=== PATIENT | female | born 1985 | race Caucasian/White ===

== ENCOUNTER 2017-01-30 20:07 | Emergency (ER) | payer SELFPAY ==
[2017-01-30 20:07] VITALS: BMI 27.1
[2017-01-30 20:37] VITALS: O2SAT 97
[2017-01-30] MEDS ORDERED: DiphenhydrAMINE 50 mg/ml Inj IM STA (20:53)
--- NOTE | 2017-01-30 20:57 | C.PDOC ---
History Of Present Illness Patient is a 31 y/o female that presents to the ED for evaluation of RLQ abdominal pain associated with nausea for the last 3 days. Otherwise, denies any dysuria, heamturia, vomiting, diarrehea, back pain, fever, chills, or any other associated symptoms at this time. Chief Complaint (Nursing): Abdominal Pain History Per: Patient History/Exam Limitations: no limitations Onset/Duration Of Symptoms: Days (3) Current Symptoms Are (Timing): Still Present Location Of Pain/Discomfort: RLQ Radiation Of Pain To:: None Quality Of Discomfort: "Pain" Associated Symptoms: Nausea. denies: Fever, Chills, Vomiting, Diarrhea, Loss Of Appetite, Back Pain, Chest Pain, Constipation, Urinary Symptoms Exacerbating Factors: None Alleviating Factors: None Recent travel outside of the [place]: No Additional History Per: Patient Abnormal Vaginal Bleeding: No Past Medical History Reviewed: Historical Data, Nursing Documentation, Vital Signs Vital Signs: Last Vital Signs Temp 98.4 F 01/30/17 20:29 Pulse 86 01/30/17 20:29 Resp 18 01/30/17 20:29 BP 114/75 01/30/17 20:29 Pulse Ox 97 01/30/17 22:56 - [facility] Procedures MANUAL ASSIST DELIV NEC (06/30/14) REPAIR OB LACERAT CERVIX (06/30/14) Family History: States: Unknown Family Hx - Social History Hx Alcohol Use: No Hx Substance Use: No Review Of Systems Except As Marked, All Systems Reviewed And Found Negative. Constitutional: Negative for: Fever, Chills Gastrointestinal: Positive for: Nausea, Abdominal Pain. Negative for: Vomiting , Diarrhea, Constipation Genitourinary: Negative for: Dysuria, Frequency, Incontinence, Hematuria Musculoskeletal: Negative for: Back Pain Physical Exam - Physical Exam Appears: Non-toxic, Other (In mild painful distress) Skin: Normal Color, Warm, Dry Head: Atraumatic, Normacephalic Eye(s): bilateral: Normal Inspection, EOMI Neck: Normal ROM, Supple Chest: Symmetrical, No Tenderness Cardiovascular: Rhythm Regular, No Murmur Respiratory: Normal Breath Sounds, No Rales, No Rhonchi, No Wheezing Gastrointestinal/Abdominal: Soft, Tenderness (RLQ), No Distention, No Guarding, No Rebound Extremity: Normal ROM, No Deformity Neurological/Psych: Oriented x3, Normal Speech, Normal Cognition ED Course And Treatment - Laboratory Results Result Diagrams: 01/30/17 21:10 01/30/17 21:10 O2 Sat by Pulse Oximetry: 97 (on RA) Pulse Ox Interpretation: Normal Progress Note: Blood work, urinalysis, Abd & pelvis CT ordered and reviewed. Patient was treated with Iohexol, Toradol, Zofran, and IV fluids in the ER. Disposition Counseled Patient/Family Regarding: Diagnosis - Disposition Referrals: [facility] [Outside] Disposition: HOME/ ROUTINE Disposition Time: 00:53 Condition: STABLE Prescriptions: Bisacodyl [Ducolax] 10 mg RC ONCE #2 sup Instructions: Constipation (DC), High Fiber Diet (ED), Abdominal Pain (ED) Forms: Gen Discharge Inst [place] Print Language: [place] - POA Present On Arrival: None - Clinical Impression Clinical Impression: Abdominal pain, Constipation - Scribe Statement The provider has reviewed the documentation as recorded by the Coreyibhawa Tijerina All medical record entries made by the Croeyibhawa were at my direction and personally dictated by me. I have reviewed the chart and agree that the record accurately reflects my personal performance of the history, physical exam, medical decision making, and the department course for this patient. I have also personally directed, reviewed, and agree with the discharge instructions and disposition.
[2017-01-30 21:13] LABS: SQUAMOUS EPITHIAL 2 /hpf (0-5); URINE BILIRUBIN NEGATIVE (NEGATIVE); URINE BLOOD NEGATIVE (NEGATIVE); URINE CLARITY Clear (Clear); URINE COLOR Straw (YELLOW); URINE GLUCOSE (UA) NORMAL (Normal); URINE LEUKOCYTE ESTERASE NEG Leu/uL (Negative); URINE NITRATE NEGATIVE (NEGATIVE); URINE PROTEIN NEGATIVE (NEGATIVE); URINE UROBILINOGEN NORMAL mg/dL (0.2-1.0)
[2017-01-30] MEDS ORDERED: Sodium Chloride 0.9% 1,000 ML IV ONE (21:14)
[2017-01-30] MEDS ORDERED: Sodium Chloride 0.9% 1,000 ML ONE (21:16)
[2017-01-30 21:20] LABS: HCG,QUALITATIVE URINE NEGATIVE (NEGATIVE)
[2017-01-30 21:23] LABS: BASO % 0.5 % (0.0-2.0); EOS # 0.1 K/uL (0.0-0.7); EOS % 1.3 % (0.0-4.0); HEMOGLOBIN 12.2 g/dL (11.0-16.0); LYMPH % 25.5 % (20.0-40.0); MEAN CELL VOLUME 81.8 fL (81.0-99.0); MEAN CORPUSCULAR HEMOGLOBIN 25.7 pg (27.0-31.0); MEAN CORPUSCULAR HGB CONC 31.4 g/dL (33.0-37.0); MEAN PLATELET VOLUME 8.7 fL (7.2-11.7); MONO # 0.4 K/uL (0.0-0.8); MONO % 4.8 % (0.0-10.0); NEUT # 5.4 K/uL (1.8-7.0); NEUT % 67.9 % (50.0-75.0); RBC 4.76 Mil/uL (3.80-5.20); RED CELL DISTRIBUTION WIDTH 14.7 % (11.5-14.5); WHITE BLOOD COUNT 7.9 K/uL (4.8-10.8)
[2017-01-30 21:25] LABS: ALBUMIN 3.9 g/dL (3.5-5.0)
[2017-01-30 21:28] LABS: ALB/GLOB RATIO 1.3 (1.0-2.1); AST/SGOT 19 U/L (14-36); BLOOD UREA NITROGEN 9 mg/dL (7-17); GFR AFRICAN-AMERICAN > 60; GFR NON-AFRICAN AMERICAN > 60
[2017-01-30 21:29] LABS: ALT/SGPT 27 U/L (9-52); CALCIUM 8.9 mg/dl (8.6-10.4); LIPASE 82 U/L (23-300)
[2017-01-30] MEDS ORDERED: Iohexol 240 (50 ml) PO ONE (21:48)
[2017-01-30] MEDS ORDERED: Iohexol 240 (50 ml) ONE (21:58)
[2017-01-30] MEDS ORDERED: Iodixanol 320 MG/ML 100 ML BOTTLE IV ONE (23:42)
[2017-01-31] MEDS ORDERED: Magnesium Hydroxide Susp 30 ml UD PO ONE (00:57)
[2017-01-31] MEDS ORDERED: Magnesium Hydroxide Susp 30 ml UD ONE (01:07)
[2017-01-31 01:16] VITALS: BP 132/71; PULSE 79; RESP 20; TEMP 98.8
--- NOTE | 2017-01-31 09:19 | CT ---
PROCEDURE: CT Abdomen and Pelvis with contrast HISTORY: Right lower quadrant abdominal pain and tenderness. COMPARISON: None. TECHNIQUE: Multiple contiguous axial images were performed through the abdomen and pelvis with intravenous contrast. Subsequently, sagittal and coronal reformatted images were obtained. Radiation dose: Total exam DLP = 462 mGy-cm. This CT exam was performed using one or more of the following dose reduction techniques: Automated exposure control, adjustment of the mA and/or kV according to patient size, and/or use of iterative reconstruction technique. FINDINGS: LOWER THORAX: Unremarkable. LIVER: Mild fatty infiltration of the liver. GALLBLADDER AND BILE DUCTS: Unremarkable. PANCREAS: Unremarkable. No gross lesion or ductal dilatation. SPLEEN: Unremarkable. ADRENALS: Unremarkable. No mass. KIDNEYS AND URETERS: Unremarkable. No hydronephrosis. No solid mass. VASCULATURE: Unremarkable. No aortic aneurysm. BOWEL: Moderate fecal retention in the right and transverse colon consistent with constipation. Underdistention and or mild thickening of the proximal sigmoid colon. APPENDIX: Normal appendix. PERITONEUM: Unremarkable. No free fluid. No free air. LYMPH NODES: Unremarkable. No enlarged lymph nodes. BLADDER: Unremarkable. REPRODUCTIVE: Unremarkable. BONES: No acute fracture. OTHER FINDINGS: None. IMPRESSION: Moderate fecal retention in the right and transverse colon consistent with constipation. Underdistention and or mild thickening of the proximal sigmoid colon. Additional findings as above. These findings were preliminarily reported at 12:48 a.m. on 01/31/[address] Meir Hodges from [facility].
== END 2017-01-31 01:14 | disposition home or self-care (01) ==
LOC: C.ER 20:07
DX: K59.00 Constipation, unspecified (principal); R10.31 Right lower quadrant pain
CPT/HCPCS: 74177; 80053; 81001; 83690; 84702; 84703; 85025; 96374; 96375; 99284; J1885; J2405; J7040; Q9966; Q9967

== ENCOUNTER 2017-07-03 08:39 | Emergency (ER) | payer OTHER ==
[2017-07-03 08:39] VITALS: BMI 27.1
[2017-07-03 08:46] VITALS: TEMP 97.4
[2017-07-03] MEDS ORDERED: Sodium Chloride 0.9% 1,000 ML IV ONE (09:02)
--- NOTE | 2017-07-03 09:17 | C.PDOC ---
History Of Present Illness 31 year old female presents to the ED for evaluation of abdominal pain, dysuria along with nausea that started last night. Patient's LMP was on 06/10 and she is G 3 and P 3, POC done at the ED was negative. Patient denies fever, chills, vomit, back pain, vaginal bleeding, vaginal discharge. Time Seen by Provider: 07/03/17 08:41 Chief Complaint (Nursing): Female Genitourinary History Per: Patient History/Exam Limitations: no limitations Onset/Duration Of Symptoms: Hrs Current Symptoms Are (Timing): Still Present Severity: Mild Quality Of Discomfort: "Pain" Associated Symptoms: Nausea, Urinary Symptoms Alleviating Factors: None Recent travel outside of the [place]: No Additional History Per: Patient Abnormal Vaginal Bleeding: No Last Menstral Period: 06/10/17 : 3 Para: 3 Past Medical History Reviewed: Historical Data, Nursing Documentation, Vital Signs Vital Signs: Last Vital Signs Temp 97.4 F L 07/03/17 08:43 Pulse 78 07/03/17 11:51 Resp 16 07/03/17 11:51 BP 118/78 07/03/17 11:51 Pulse Ox 100 07/03/17 12:15 - Medical History PMH: No Chronic Diseases Surgical History: No Surg Hx - [facility] Procedures MANUAL ASSIST DELIV NEC (06/30/14) REPAIR OB LACERAT CERVIX (06/30/14) Family History: States: Unknown Family Hx - Social History Hx Alcohol Use: No Hx Substance Use: No - Immunization History Hx Tetanus Toxoid Vaccination: No Hx Influenza Vaccination: No Hx Pneumococcal Vaccination: No Review Of Systems Constitutional: Negative for: Fever, Chills Cardiovascular: Negative for: Chest Pain Respiratory: Negative for: Cough, Shortness of Breath Gastrointestinal: Positive for: Nausea, Abdominal Pain. Negative for: Vomiting Genitourinary: Positive for: Dysuria. Negative for: Hematuria, Vaginal Discharge, Vaginal Bleeding Musculoskeletal: Negative for: Back Pain Skin: Negative for: Rash Neurological: Negative for: Weakness, Numbness Physical Exam - Physical Exam Appears: Non-toxic, No Acute Distress Skin: Normal Color, Warm, Dry Head: Atraumatic, Normacephalic Nose: No Discharge, No Deformity Oral Mucosa: Moist Neck: Normal ROM, Supple Chest: Symmetrical Cardiovascular: Rhythm Regular, No Murmur Respiratory: Normal Breath Sounds, No Rales, No Rhonchi, No Wheezing Gastrointestinal/Abdominal: Soft, Tenderness (Suprapubic), No Distention, No Rebound Extremity: Normal ROM, No Pedal Edema, No Calf Tenderness, No Deformity, No Swelling Neurological/Psych: Oriented x3, Normal Speech, Normal Cognition Gait: Steady ED Course And Treatment - Laboratory Results Result Diagrams: 07/03/17 09:32 07/03/17 09:32 Lab Interpretation: Normal O2 Sat by Pulse Oximetry: 100 (On RA) Pulse Ox Interpretation: Normal - CT Scan/US CT abdo/pelvis Other Rad Studies (CT/US): Interpreted By Me, Read By Radiologist, Radiology Report Reviewed CT/US Interpretation: PROCEDURE: CT Abdomen and Pelvis without Oral or IV contrast. HISTORY: Pain. COMPARISON: CT abdomen pelvis with contrast performed 01/31/17. TECHNIQUE: Contiguous axial images of the abdomen and pelvis. No oral or IV contrast administered. Coronal and Sagittal reformats generated and reviewed. Radiation dose: Total exam DLP = 579.97 mGy-cm. This CT exam was performed using one or more of the following dose reduction techniques: Automated exposure control, adjustment of the mA and/or kV according to patient size, and/or use of iterative reconstruction technique. FINDINGS: There is limited evaluation of the solid organs without the administration of IV contrast. LOWER THORAX: No visible consolidation, pleural effusion, or pneumothorax. LIVER: Unremarkable unenhanced appearance. GALLBLADDER AND BILE DUCTS: Unremarkable unenhanced appearance. PANCREAS: Unremarkable unenhanced appearance. SPLEEN: Unremarkable unenhanced appearance. ADRENALS: Unremarkable unenhanced appearance. KIDNEYS AND URETERS : No hydronephrosis or obstructing renal calculus. BLADDER: Mildly thick- walled urinary bladder may be exaggerated by under distension. REPRODUCTIVE: Lobulated heterogeneous uterus appears consistent with fibroids. APPENDIX: The appendix appears within normal limits of caliber. No secondary signs of acute appendicitis. BOWEL: The stomach is nondistended. Lack of oral contrast limits evaluation for bowel pathology. The bowel loops appear within normal limits of caliber without evidence of intestinal obstruction. Moderate to severe diffuse constipation. PERITONEUM: No significant free fluid. No definite free air. LYMPH NODES: No bulky lymphadenopathy identified. VASCULATURE: No aortic aneurysm. BONES: No acute osseous abnormality is detected. OTHER FINDINGS: Tiny fat containing umbilical hernia. IMPRESSION: Moderate to severe diffuse constipation. Lobulated heterogeneous uterus appears consistent with fibroids. Mildly thick-walled urinary bladder may be exaggerated by under distension. Recommend correlation with urinalysis if indicated. Progress Note: Treated with IVF NSS, zofran and toradol. On re-evaluation abdomen soft. discharged in stable condition Reassessment Condition: Improved Medical Decision Making Medical Decision Making: Impression : abdominal pain, dysuria Plan: * Blood work * Toradol 30 mg IVP * Zofran 4 mg IVP * IV fluids * UA (POC was neg) * CT abdo/pelvis Disposition Counseled Patient/Family Regarding: Studies Performed, Diagnosis, Need For Followup, Rx Given - Disposition Referrals: [facility] [Outside] [facility] [Outside] Disposition: HOME/ ROUTINE Disposition Time: 12:30 Condition: IMPROVED Additional Instructions: follow up with clinic for further evaluation Prescriptions: Naproxen [Naprosyn] 1 tab PO BID PRN #25 tab PRN Reason: Pain Polyethylene Glycol 3350 [Miralax] 17 gra PO DAILY PRN #10 packet PRN Reason: Constipation Instructions: Uterine Fibroids (ED) Forms: [employer] (Kiswahili) Print Language: THAI - POA Present On Arrival: None - Clinical Impression Clinical Impression: Abdominal pain, Constipation, Fibroids - PA / SPECIAL DELIVERY MESSENGER / Resident Statement MD/DO has reviewed & agrees with the documentation as recorded. - Scribe Statement The provider has reviewed the documentation as recorded by the Scribhawa Boone All medical record entries made by the Scribe were at my direction and personally dictated by me. I have reviewed the chart and agree that the record accurately reflects my personal performance of the history, physical exam, medical decision making, and the department course for this patient. I have also personally directed, reviewed, and agree with the discharge instructions and disposition.
[2017-07-03 09:23] LABS: RBC URINE 70 /hpf (0-3); URINE BACTERIA RARE (<OCC); URINE BILIRUBIN NEGATIVE (NEGATIVE); URINE BLOOD 2+ (NEGATIVE); URINE COLOR Straw (YELLOW); URINE GLUCOSE (UA) NORMAL (Normal); URINE KETONE NEGATIVE (NEGATIVE); URINE LEUKOCYTE ESTERASE 2+ Leu/uL (Negative); URINE PROTEIN 1+ mg/dL (NEGATIVE); URINE UROBILINOGEN NORMAL mg/dL (0.2-1.0); WBC URINE 179 /hpf (0-5)
[2017-07-03] MEDS ORDERED: Sodium Chloride 0.9% 1,000 ML ONE (09:25)
[2017-07-03 09:40] LABS: BASO % 0.3 % (0.0-2.0); EOS # 0.1 K/uL (0.0-0.7); EOS % 0.7 % (0.0-4.0); HEMATOCRIT 35.4 % (34.0-47.0); LYMPH # 1.3 K/uL (1.0-4.3); MEAN CORPUSCULAR HEMOGLOBIN 26.9 pg (27.0-31.0); MEAN CORPUSCULAR HGB CONC 33.3 g/dL (33.0-37.0); MEAN PLATELET VOLUME 8.5 fL (7.2-11.7); MONO # 0.5 K/uL (0.0-0.8); MONO % 5.6 % (0.0-10.0); RED CELL DISTRIBUTION WIDTH 14.6 % (11.5-14.5); WHITE BLOOD COUNT 8.5 K/uL (4.8-10.8)
[2017-07-03 09:49] LABS: ALB/GLOB RATIO 1.5 (1.0-2.1); ALKALINE PHOSPHATASE 78 U/L (38-126); ALT/SGPT 38 U/L (9-52); AST/SGOT 18 U/L (14-36); BILIRUBIN,TOTAL 0.4 mg/dL (0.2-1.3); BLOOD UREA NITROGEN 8 mg/dL (7-17); CALCIUM 7.8 mg/dl (8.6-10.4); CARBON DIOXIDE 25 mmol/L (22-30); CHLORIDE 106 mmol/L (98-107); GFR AFRICAN-AMERICAN > 60; GLUCOSE,RANDOM 95 mg/dL (65-105); POTASSIUM 3.8 mmol/L (3.6-5.2); SODIUM 139 mmol/L (132-148); TOTAL PROTEIN 6.4 g/dL (6.3-8.3)
[2017-07-03 11:51] VITALS: BP 118/78; PULSE 78; RESP 16
--- NOTE | 2017-07-03 12:02 | CT ---
PROCEDURE: CT Abdomen and Pelvis without Oral or IV contrast. HISTORY: Pain COMPARISON: CT abdomen pelvis with contrast performed 01/31/17 TECHNIQUE: Contiguous axial images of the abdomen and pelvis. No oral or IV contrast administered. Coronal and Sagittal reformats generated and reviewed. Radiation dose: Total exam DLP = 579.97 mGy-cm. This CT exam was performed using one or more of the following dose reduction techniques: Automated exposure control, adjustment of the mA and/or kV according to patient size, and/or use of iterative reconstruction technique. FINDINGS: There is limited evaluation of the solid organs without the administration of IV contrast. LOWER THORAX: No visible consolidation, pleural effusion, or pneumothorax. LIVER: Unremarkable unenhanced appearance. GALLBLADDER AND BILE DUCTS: Unremarkable unenhanced appearance. PANCREAS: Unremarkable unenhanced appearance. SPLEEN: Unremarkable unenhanced appearance. ADRENALS: Unremarkable unenhanced appearance. KIDNEYS AND URETERS: No hydronephrosis or obstructing renal calculus. BLADDER: Mildly thick-walled urinary bladder may be exaggerated by under distension. REPRODUCTIVE: Lobulated heterogeneous uterus appears consistent with fibroids. APPENDIX: The appendix appears within normal limits of caliber. No secondary signs of acute appendicitis. BOWEL: The stomach is nondistended. Lack of oral contrast limits evaluation for bowel pathology. The bowel loops appear within normal limits of caliber without evidence of intestinal obstruction. Moderate to severe diffuse constipation. PERITONEUM: No significant free fluid. No definite free air. LYMPH NODES: No bulky lymphadenopathy identified. VASCULATURE: No aortic aneurysm. BONES: No acute osseous abnormality is detected. OTHER FINDINGS: Tiny fat containing umbilical hernia. IMPRESSION: Moderate to severe diffuse constipation. Lobulated heterogeneous uterus appears consistent with fibroids. Mildly thick-walled urinary bladder may be exaggerated by under distension. Recommend correlation with urinalysis if indicated.
[2017-07-03 12:10] VITALS: O2SAT 100
== END 2017-07-03 12:29 | disposition home or self-care (01) ==
LOC: C.ER 08:39
DX: D25.9 Leiomyoma of uterus, unspecified (principal); K59.00 Constipation, unspecified; R10.9 Unspecified abdominal pain
CPT/HCPCS: 74176; 80053; 81001; 85025; 96361; 96374; 96375; 99283; J1885; J2405; J7040